=== PATIENT | female | born 1985 | race Asian ===

== ENCOUNTER → 2018-04-08 | Outpatient (CLI) | payer OTHER ==
[2018-04-08 10:23] LABS: HEMATOCRIT 33.4 % (37-47); HEMOGLOBIN 11.4 g/dL (12.0-16.0)
== END | disposition home or self-care (01) ==
LOC: C.LAB1850 08:58
PROVIDERS: ATTEND Obstetrics & Gynecology
DX: Z34.83 Encounter for supervision of other normal pregnancy, third trimester (principal)

== ENCOUNTER → 2018-06-03 | Outpatient (CLI) | payer OTHER | END | disposition home or self-care (01) | LOC: C.LABSPEC 15:49 | PROVIDERS: ATTEND Obstetrics & Gynecology | DX: Z34.83 Encounter for supervision of other normal pregnancy, third trimester (principal) ==

== ENCOUNTER 2018-06-21 00:27 | Outpatient (CLI) | payer OTHER ==
[~2018-06-21] VITALS: Ht 157.5 cm; Wt 65.0 kg
[2018-06-21 01:42] VITALS: Ht 157.5 cm; Wt 65.0 kg
[2018-06-21] MEDS ORDERED: PRENTAB26 PO ×2 (01:53)
--- NOTE | 2018-06-24 08:21 | EDITING REQUIRED CODING QUERY ---
DIAGNOSIS NEEDED To promote full compliance with coding requirements relating to patient care, physician participation is requested in all cases of security alarm installer uncertainty. Please assist us with the question(s) below: Coding Question: The patient received care in labor and delivery on 06/21/18 as noted within the record. Please document the diagnosis that is being addressed by the medication/treatment. Provider Response: DIAGNOSIS: No evidence of leaking amniotic fluid, ie. False labor WEEKS OF GESTATION: 38 weeks Thank you for your assistance, Shawanda Michelle - Tie In Hand
== END 2018-06-21 01:35 | disposition home or self-care (01) ==
LOC: C.OPB 00:27 → C.LD 00:27 → C.OPB 01:35 → EDSTATUS 06-30 00:26
PROVIDERS: ATTEND Obstetrics & Gynecology
DX: O47.1 False labor at or after 37 completed weeks of gestation (principal); Z3A.38 38 weeks gestation of pregnancy

== ENCOUNTER 2018-06-24 16:16 | Inpatient (IN) | payer OTHER ==
[~2018-06-24] VITALS: Ht 160 cm; Wt 67.5 kg
[~2018-06-24 16:16] MED LIST: PRENTAB26 PO
[2018-06-24 17:24] VITALS: Ht 160 cm; Wt 67.5 kg
[2018-06-24] MEDS ORDERED: LACTATED RINGER'S 1000ML 1,000 ML IV PRN (17:59)
[2018-06-24] MEDS ORDERED: LACTATED RINGER'S 1000ML 1,000 ML IV SCH (17:59)
[2018-06-24 18:18] LABS: HEMATOCRIT 35.7 % (37-47); MEAN CELL VOLUME 87.9 fL (80-100); MEAN CORPUSCULAR HEMOGLOBIN 29.6 pg (25-34); MEAN CORPUSCULAR HGB CONC 33.6 g/dl (32-36); MEAN PLATELET VOLUME 9.5 fL (7.4-10.4); PLATELET COUNT 216 K/uL (130-400); RED CELL DISTRIBUTION WIDTH CV 14.1 % (11.5-14.5); RED CELL DISTRIBUTION WIDTH SD 45.2 fL (36.4-46.3); WHITE BLOOD COUNT 12.78 K/uL (4.8-10.8)
[2018-06-24] MEDS ORDERED: BUPIVACAINE 0.25% 30 ML VIAL ONE (18:23)
[2018-06-24] MEDS ORDERED: EpHEDrine SULFATE INJ 50 MG/ML AMP ONE (18:23)
[2018-06-24] MEDS ORDERED: FENTANYL CITRATE INJ 50 MCG/1 ML 2 ML VIAL ONE (18:24)
[2018-06-24] MEDS ORDERED: FENTANYL 2MCG/ML ROPIV 1.25MG/ML 100ML BAG ONE (18:24)
[2018-06-24] MEDS ORDERED: NALOXONE HCL INJ 1 MG in SODIUM CHLORIDE 0.9% 1000ML 1,000 ML IV PRN (18:51)
[2018-06-24] MEDS ORDERED: LACTATED RINGER'S 1000ML 500 ML IV PRN (18:51)
[2018-06-24] MEDS ORDERED: FENTANYL 2MCG/ML ROPIV 1.25MG/ML 100ML BAG EPI PRN (19:00)
[2018-06-24] MEDS ORDERED: DiphenhydrAMINE HCL 50 MG/ML VIAL IV PRN (19:00)
[2018-06-24] MEDS ORDERED: NALBUPHINE HCL INJ 10 MG/ML 1ML AMP IV PRN (19:00)
[2018-06-24] MEDS ORDERED: EpHEDrine SULFATE INJ 50 MG/ML AMP IV PRN (19:00)
[2018-06-24] MEDS ORDERED: NALOXONE HCL INJ 0.4 MG/1 ML VIAL/CARP IV PRN (19:00)
[2018-06-24] MEDS ORDERED: ONDANSETRON INJ 2 MG/ML 2 ML VIAL IV PRN (19:00)
[2018-06-24] MEDS ORDERED: OXYTOCIN 30 UNITS/500ML NSS IV ONE (19:10)
[2018-06-24] MEDS ORDERED: OXYTOCIN INJ 20 UNITS in LACTATED RINGER'S 1000ML 1,000 ML IV SCH (19:31)
--- NOTE | 2018-06-24 19:42 | DELIVERY SUMMARY ---
DATE OF OPERATION: 06/24/2018 The patient dilated to complete and pushed to deliver a viable male , Apgars 8 and 9 via over second-degree perineal laceration. Nose and mouth were bulb suctioned at the perineum. Shoulders and body were delivered with ease. The infant was vigorous and crying at . Gentle downward traction was used. Cord is clamped at 30 seconds of life and then to maternal abdomen, where the cord was then doubly clamped and then cut. The placenta was delivered spontaneously and intact, 3-vessel cord. Hemostasis achieved with dilute Pitocin and uterine massage. Cervix and sulci intact. Bladder drained under sterile conditions for 200 mL. Laceration repaired in a usual fashion using 3-0 Vicryl. EBL is 300 mL. Mother and baby stable in recovery. I attest to the content of the Intraoperative Record and any orders documented therein. Any exception s are noted below.
[2018-06-24] MEDS ORDERED: ACETAMINOPHEN 325 MG TAB PO PRN (19:45)
[2018-06-24] MEDS ORDERED: OXYCODONE/ACETAMINOPHEN 5-325 TAB PO PRN (19:45)
[2018-06-24] MEDS ORDERED: HYDROCORTISONE ACETATE 25 MG SUPP PR PRN (19:45)
[2018-06-24] MEDS ORDERED: OXYTOCIN 30 UNITS/500ML NSS IV PRN (19:45)
[2018-06-24] MEDS ORDERED: DIPHTHERIA/TETANUS/PERTUSSIS 0.5 ML SYR/VIAL IM. ONE (19:45)
[2018-06-24] MEDS ORDERED: LANOLIN OINT EXT PRN (19:45)
[2018-06-24] MEDS ORDERED: BENZOCAINE 20% AER SPR 82.5 GM CAN EXT PRN (19:45)
[2018-06-24] MEDS ORDERED: SUPERCREAM 0.870 % 15GM JAR EXT PRN (19:45)
--- NOTE | 2018-06-24 19:54 | Anesthesia Procedure Note ---
Anesthesia Epidural Removal Nt Date & Time Jun 24, 2018 at 19:54 Vital Signs Pain Intensity: 2.0 Notes Mental Status: alert / awake / arousable, participated in evaluation Nausea / Vomiting: adequately controlled Pain: adequately controlled Airway Patency, RR, SpO2: stable & adequate BP & HR: stable & adequate Hydration State: stable & adequate Neuraxial Anesthesia: was administered, sensory block is resolving Anesthetic Complications: no major complications apparent, pt satisfied with anesthetic care Epidural: removed without complications, with tip intact
[2018-06-24 23:55] VITALS: BP 104/58; PULSE 75; TEMP 36.6; O2SAT 96
[2018-06-25 03:20] VITALS: BP 109/59; PULSE 75; TEMP 36.7; O2SAT 96
--- NOTE | 2018-06-25 07:18 | Progress Note ---
Subjective Jun 25, 2018. Subjective conversation w/ patient Ambulation: ambulating normally Voiding: no voiding problems Passing Gas: Yes Diet Tolerance: Regular Diet Lochia: Moderate Feeding Type: Breast Feeding Pain: Improving Review of Systems Constitutional: No fever, No chills Respiratory: No shortness of breath Cardiac: No chest pain, No palpitations Abdomen: No nausea, No vomiting Female : No dysuria Objective Vital Signs Date Time Temp Pulse Resp B/P (MAP) Pulse Ox O2 Delivery O2 Flow Rate FiO2 06/25/18 03:20 36.7 75 18 109/59 (76) 96 Room Air 06/24/18 23:55 36.6 75 16 104/58 (73) 96 Room Air 06/24/18 23:55 96 Room Air Physical Exam General Appearance: WELL-APPEARING, NO APPARENT DISTRESS Respiratory/Chest: normal breath sounds, no respiratory distress Cardiovascular: regular rate, rhythm Abdomen: soft (1 below umbilicus) Fundus: Firm, Relation to Umbilicus (1 down) Extremities: no calf tenderness Laboratory Results Last 24 Hours Test 06/24/18 18:10 06/25/18 04:44 White Blood Count 12.78 K/uL Red Blood Count 4.06 M/uL Hemoglobin 12.0 g/dL Hematocrit 35.7 % Mean Corpuscular Volume 87.9 fL Mean Corpuscular Hemoglobin 29.6 pg Mean Corpuscular Hemoglobin Concent 33.6 g/dl RDW Standard Deviation 45.2 fL RDW Coefficient of Variation 14.1 % Platelet Count 216 K/uL Mean Platelet Volume 9.5 fL Medications Current Inpatient Medications Medications (Trade) Dose Ordered Sig/Yessy Route Start Time Stop Time Status Last Admin Dose Admin Oxytocin 20 units/ Lactated Ringer's 1,002 ml @ 125 mls/hr Q8H1M IV 06/24/18 19:31 06/25/18 11:32 06/24/18 20:09 125 MLS/HR Oxytocin (Pitocin IV) 30 units UD PRN IV 06/24/18 19:45 07/24/18 19:44 Benzocaine (Dermoplast Aero Spr) 1 appln PRN PRN EXT 06/24/18 19:45 07/24/18 19:44 06/25/18 05:53 1 APPLN Cocaine HCl (Supercream 0.870% Cr) BID PRN EXT 06/24/18 19:45 07/08/18 19:44 Hydrocortisone Acetate (Anusol Hc Supp) 25 mg BID PRN MD 06/24/18 19:45 07/24/18 19:44 Lanolin (Lanolin Oint) PRN PRN EXT 06/24/18 19:45 07/24/18 19:44 Ibuprofen (Motrin Tab) 600 mg Q4H PRN PO 06/24/18 19:45 07/24/18 19:44 Acetaminophen (Tylenol Tab) 650 mg Q6H PRN PO 06/24/18 19:45 07/24/18 19:44 Oxycodone/ Acetaminophen (Percocet 5-325mg Tab) 1 tab Q4H PRN PO 06/24/18 19:45 07/08/18 19:44 Docusate Sodium (coLACE CAP) 100 mg BID PO 06/24/18 20:00 07/24/18 19:59 Assessment and Plan Post- Day#: 1 Continue Routine Care: Analgesia PRN Escalate diet as needed Ambulation encouraged. Dr. Sosa PGY 1 Resident Physician Supervision Note: I was present with Dr. Sosa during the history and exam. I discussed the case with the resident and agree with the findings and plan as documented in the note. Any exceptions or clarifications are listed here: Patient concerned about passing fist sized blood clots. Reviewed that can be normal, ff 3 down. will plan to d/w nursing any concerns. h/h reviewed today and c/w routine pp blood loss. routine care. breast feeding. Documented By: Rosalinda Mercado Resident Tracking Resident Involvement: Resident Care Provided Care Provided: OB Delivery
[2018-06-25 07:38] LABS: HEMATOCRIT 30.7 % (37-47); HEMOGLOBIN 10.3 g/dL (12.0-16.0)
[2018-06-25 08:00] VITALS: BP 101/50; PULSE 84; TEMP 36.9; O2SAT 98
[2018-06-25] MEDS: DOCUSATE SODIUM 100 MG CAP PO SCH ×3 (08:51→21:56)
[2018-06-25 11:41] VITALS: BP 96/56; PULSE 74; TEMP 36.6; O2SAT 97
[2018-06-25] MEDS: IBUPROFEN 600 MG TAB PO PRN ×2 (14:27→21:59)
[2018-06-25 15:15] VITALS: BP 102/62; PULSE 76; TEMP 36.5; O2SAT 97
[2018-06-25 23:40] VITALS: BP 104/62; PULSE 92; TEMP 36.5
--- NOTE | 2018-06-26 06:59 | Progress Note ---
Subjective Jun 26, 2018. Subjective conversation w/ patient Ambulation: ambulating normally Voiding: no voiding problems Passing Gas: Yes Diet Tolerance: Regular Diet Lochia: Moderate Feeding Type: Breast Feeding Pain: Bad Cramping yesterday, but improved Review of Systems Constitutional: No fever, No chills Respiratory: No shortness of breath Cardiac: No chest pain, No palpitations Abdomen: No nausea, No vomiting Female : No dysuria Objective Vital Signs Date Time Temp Pulse Resp B/P (MAP) Pulse Ox O2 Delivery O2 Flow Rate FiO2 06/25/18 23:40 36.5 92 18 104/62 (76) Room Air 06/25/18 23:40 Room Air 06/25/18 15:15 36.5 76 18 102/62 (75) 97 Room Air 06/25/18 15:15 97 Room Air 06/25/18 11:41 36.6 74 18 96/56 (69) 97 Room Air 06/25/18 08:00 36.9 84 16 101/50 (67) 98 Room Air 06/25/18 08:00 Room Air Physical Exam General Appearance: WELL-APPEARING, NO APPARENT DISTRESS Respiratory/Chest: normal breath sounds Cardiovascular: regular rate, rhythm Abdomen: soft Fundus: Firm, Relation to Umbilicus Extremities: no calf tenderness (3 down) Laboratory Results Last 24 Hours Test 06/25/18 07:28 Hemoglobin 10.3 g/dL Hematocrit 30.7 % Assessment and Plan Post- Day#: 2 Continue Routine Care: Continue routine care Ambulation encouraged. Analgesia prn Discharge today, followup in 6 weeks. PGY1 Resident, Nate Sosa Resident Physician Supervision Note: I was present with Dr. Sosa during the history and exam. I discussed the case with the resident and agree with the findings and plan as documented in the note. Any exceptions or clarifications are listed here: PPD#2 doing well. DC home today. Documented By: Maria Antonia Nelson Resident Involvement: Resident Care Provided Care Provided: OB Delivery
--- NOTE | 2018-06-26 07:00 | Discharge Instructions ---
Discharge Instructions Date of Service Jun 26, 2018. Admission Reason for Admission: 39 Weeks Gestation Of Discharge Discharge Diagnosis / Problem: Vaginal delivery Discharge Goals Goal(s): Routine recovery after delivery Medications Continue Dispensed Medications: supercream, dermaplast, tucks, lansinoh Activity Recommendations Activity Limitations: per Instructions/Follow-up section . Instructions / Follow-Up Instructions / Follow-Up ACTIVITY RECOMMENDATIONS: * Gradual return to full activity over the next 2-3 weeks. * No lifting - nothing heavier than baby over the next 2-3 weeks. * Do not engage in vigorous exercise, sexual activity or sports until cleared by your physician. * Do not drive or operate any motorized equipment until cleared by your physician. * You may shower/bathe daily. MEDICATIONS: For discomfort or pain, you may use Acetaminophen (Tylenol), Ibuprofen (Advil), or Naproxen (Aleve) following the package directions. For constipation you may use Colace following the package directions. BREAST CARE: If you are not breast feeding: * Wear a supportive bra 24 hours a day for one to two weeks. * Avoid stimulating your breasts and nipples as much as possible during the first few weeks after delivery. * When taking a shower, have the warm water hit your back, not breasts. * When your breasts feel full, apply ice packs. Usually three to four times a day helps ease the discomfort. * Take a mild pain medication (Tylenol / Motrin) when you are uncomfortable. If breast feeding: * Use breast milk to lubricate nipples. Lansinoh cream may be used for sore nipples. You do not need to remove cream prior to breast feeding. If using a different brand of cream, check the label for directions regarding removal of cream prior to nursing. * Wear a supportive bra. * If having problems with breasts or breast feeding, call a sap solution manager consultant or your health care provider. EPISIOTOMY CARE: After delivery, if you have an episiotomy (stitches), the following steps will ease discomfort and aid healing. * For the first 24 hours after delivery, place ice packs next to your episiotomy to help reduce swelling. * After the first 24 hour-period, sitz baths, either portable or in the tub, are suggested. A shower with a shower arm sprayed over the episiotomy may be comforting. * Holli care should be done after each voiding and bowel movement. Squirt warm water from a plastic bottle over the perineum (region of the body between the anus and urinary opening) and pat dry. * Use Dermoplast to ease discomfort. Shake container. [place] directly over the episiotomy. Place a Tucks on a clean sanitary pad next to your episiotomy. SPECIAL CARE INSTRUCTIONS: When you are discharged from the hospital, it is important for you to follow the instructions listed below: * During the first week at home, you should be able to care for yourself and your baby. In addition, the usual light household activities are encouraged. * Limit your activities to the way you feel. Do not try to clean the house or move furniture. Be sensible. * If you actively engage in sports and have done so up until the time of your delivery, you may resume these activities as soon as you feel able. This may take up to one month or even longer. Use good judgment. * Continue to take your vitamins for at least six weeks after the of your baby. * Your diet need not be limited unless you were on a special diet before your delivery. Breast-feeding mothers need around 2500 calories per day and at least 64-80 ounces of fluid per day (8 to 10 glasses). * You should eat foods from the four major food groups. Crash diets or fad diets are to be avoided. Eating lean meats, fresh fruits and vegetables, low-fat dairy products, high fiber foods and a regular exercise program, will help you get back to your pre- weight without putting your health at risk. * Constipation is sometimes a problem after delivery. Take a mild laxative as needed. If breast feeding, Milk of Magnesia is acceptable to use. You may use a suppository or Fleets enema if no episiotomy. * A daily shower or tub bath is suggested. Be sure to thoroughly and gently dry the perineum. * A bloody vaginal discharge will usually continue until around four weeks post . A small amount of bleeding may continue for as long as six weeks. Vaginal discharge changes from the bright red bleeding after delivery to pink then brownish and finally yellowish-pink before becoming white and disappearing. * Bleeding may increase with activity. Your first period may come in 4-8 weeks. If you are breast feeding, your period may be delayed even longer. * [place] (sex) can begin whenever both you and your partner feel comfortable and do not have any form of genital infection. It is recommended that you wait at least six weeks for internal and external healing to occur. If you have questions, please talk to your health care practitioner. A condom should be used to prevent infection and . * Foreplay, gentle intercourse and lubrication is very important the first several times to prevent pain. A water-based lubricant such as K-Y jelly or Astroglide may be used. * If you have RH negative blood and your baby is RH positive, you will receive RHOGAM by injection prior to discharge. The nurse will give you a card to keep with you that has the date and place that you received RHOGAM after delivery. * During your care, you had a Rubella screen done to check for the presence of rubella antibodies in your blood. If your test was negative, you will receive a Rubella vaccine prior to discharge. This vaccine may cause a fever, soreness at the injection site and flu-like symptoms. If these symptoms persist, notify your health care practitioner. is not advised for one month after a Rubella vaccine. * Verbalizes understanding of car seat law as reviewed with patient nursing. * Car Seat hand-out given and reviewed with patient by nursing. * Shaken baby information reviewed with patient by nursing. Call you doctor if: * Heavy bleeding (saturating several pads an hour) or passing clots the size of your fist. * A fever >101 degrees F (38.3 degrees C) on two occasions four hours apart and /or chills. * Unusual pain in the pelvic or vaginal areas. * "Baby Blues" lasting longer than two weeks. If you have any questions or concerns, call your health care practitioner at . FOLLOW UP VISIT: * Please call the office at to schedule a 6 week examination. It is important you keep this appointment. It is important for you to make arrangements for either yearly or twice yearly check-ups thereafter. Current Hospital Diet Patient's current hospital diet: Regular OB Diet Discharge Diet Recommended Diet: Regular OB Diet Pending Studies Studies pending at discharge: no Medical Emergencies . Who to Call and When: Medical Emergencies: If at any time you feel your situation is an emergency, please call 911 immediately. . Non-Emergent Contact Non-Emergency issues call your: Primary Care Provider . . "Provider Documentation" section prepared by Alondra Sosa. .
[2018-06-26 08:00] VITALS: PULSE 90; TEMP 36.4
[2018-06-26] MEDS: DOCUSATE SODIUM 100 MG CAP PO SCH (08:17)
[2018-06-26] MEDS: IBUPROFEN 600 MG TAB PO PRN (08:20)
[2018-06-26 11:00] VITALS: BP_DIAS 62; PULSE 90; TEMP 36.4
== END 2018-06-26 11:19 | disposition home or self-care (01) | DRG 775 ==
LOC: C.OPB 16:16 → C.LD 16:16 → C.OPB 18:00 → C.OBG 06-25 00:05
PROVIDERS: ADMIT Obstetrics & Gynecology; ATTEND Obstetrics & Gynecology
PROC: 10E0XZZ Delivery of Products of Conception, External Approach (ICD-10-PCS; principal; 2018-06-24)
PROC: 0KQM0ZZ Repair Perineum Muscle, Open Approach (ICD-10-PCS; principal; 2018-06-24)
DX: O99.52 Diseases of the respiratory system complicating childbirth (principal); O70.1 Second degree perineal laceration during delivery; O28.8 Other abnormal findings on antenatal screening of mother; J45.909 Unspecified asthma, uncomplicated; Z3A.39 39 weeks gestation of pregnancy; Z37.0 Single live birth